=== PATIENT | female | born 1935 | race Caucasian/White ===

== ENCOUNTER 2017-08-14 14:58 | Emergency (ER) | payer OTHER ==
[~2017-08-14] VITALS: Ht 152.4 cm; Wt 52.2 kg
[~2017-08-14 14:58] MED LIST: CARAFATE1 G; CIPRO500 MG PO; FLEXERIL10 MG PO; FOSAMAX5 MG PO; LEVAQUIN500 MG; NOVOLOG100 U/M1 SQ; OMEPRAZOLE20 MG PO; REGLAN5 MG/5 ML PO; TRAMADOL HCL50 MG PO
[2017-08-15] MEDS ORDERED: ULTRACET PO (05:59)
[2017-08-15] MEDS ORDERED: CIPRO500 MG PO (05:59)
== END 2017-08-15 06:24 | disposition home or self-care (01) ==
LOC: ER 14:58
DX: S32.018A Other fracture of first lumbar vertebra, initial encounter for closed fracture (principal); W18.39XA Other fall on same level, initial encounter; Y93.89 Activity, other specified; Y92.098 Other place in other non-institutional residence as the place of occurrence of the external cause; Y99.8 Other external cause status; E10.9 Type 1 diabetes mellitus without complications; R30.0 Dysuria; N39.0 Urinary tract infection, site not specified; R53.1 Weakness